=== PATIENT | male | born 1995 | race Two or more races ===

== ENCOUNTER 2019-08-22 02:56 | Emergency (ER) | payer SELFPAY ==
[~2019-08-22] VITALS: Ht 170.2 cm; Wt 70.5 kg
[2019-08-22 03:40] LABS: BASOPHILS % (AUTO) 0.6 % (0.0-2.0); EOSINOPHILS % (AUTO) 0.3 % (1.0-6.0); HEMATOCRIT 44.9 % (41-53); HEMOGLOBIN 15.2 g/dL (13.5-17.5); LYMPHOCYTES # (AUTO) 2.7 K/uL (1.0-4.8); LYMPHOCYTES % (AUTO) 25.4 % (22.0-44.0); MEAN CORPUSCULAR HEMOGLOBIN 30.8 pg (26.0-34.0); MEAN CORPUSCULAR HGB CONC 33.8 G/dL (31.0-37.0); MEAN CORPUSCULAR VOLUME 91 fL (80-100); MONOCYTES # (AUTO) 0.8 K/uL (0.1-1.0); MONOCYTES % (AUTO) 7.7 % (2.0-9.0); PLATELET COUNT (AUTO) 277 K/uL (150-450); RED BLOOD CELL COUNT(AUTO) 4.93 MIL/uL (4.50-5.90); RED CELL DISTRIBUTION WIDTH 13.4 % (11.5-14.5)
[2019-08-22 03:54] LABS: AMPHET/METH SCREEN,URINE NEGATIVE (NEGATIVE); BARBITURATE SCREEN, URINE NEGATIVE (NEGATIVE); BENZODIAZEPINES SCREEN,URINE NEGATIVE (NEGATIVE); CANNABINOID SCREEN,URINE NEGATIVE (NEGATIVE); COCAINE SCREEN,URINE NEGATIVE (NEGATIVE); METHADONE SCREEN, URINE NEGATIVE (NEGATIVE); OPIATE SCREEN,URINE NEGATIVE (NEGATIVE); PHENCYCLIDINE SCREEN,URINE NEGATIVE (NEGATIVE)
[2019-08-22 03:54] LABS: ANION GAP 7 mmol/L (8-16); CALCIUM, TOTAL 8.7 mg/dL (8.8-10.5); CARBON DIOXIDE 29 mmol/L (22-29); CHLORIDE 105 mmol/L (98-107); CREATININE 0.92 mg/dL (0.60-1.30); GLOMERULAR FILTR. RATE CALC > 60 mL/min (>60); GLUCOSE,RANDOM 97 mg/dL (70-110); POTASSIUM 3.9 mmol/L (3.5-5.1); SODIUM SERUM 141 mmol/L (136-145); UREA NITROGEN, BLOOD 8 mg/dL (7-18)
[2019-08-22 04:08] LABS: ALANINE AMINOTRANSFERASE 36 U/L (12-78); ALKALINE PHOSPHATASE 66 U/L (46-116); ASPARTATE AMINOTRANSFERASE 17 U/L (15-37); BILIRUBIN,TOTAL 0.2 mg/dL (0.1-1.0); TOTAL PROTEIN, SERUM 7.7 g/dL (6.4-8.2)
[2019-08-22 05:57] VITALS: BP 143/85
== END 2019-08-22 06:07 | disposition home or self-care (01) ==
LOC: EMS 02:56
DX: F43.0 Acute stress reaction (principal); F10.129 Alcohol abuse with intoxication, unspecified; Y90.6 Blood alcohol level of 120-199 mg/100 ml
CPT/HCPCS: 36415; 80053; 80307; 85025; 99285; G0480

== ENCOUNTER 2021-10-25 18:42 | Inpatient (IN) | payer OTHER ==
[~2021-10-25] VITALS: Ht 170.2 cm; Wt 60.7 kg
[2021-10-25] MEDS ORDERED: LORazepam 2 MG/ML VIAL IM ONE (19:30)
[2021-10-25] MEDS ORDERED: HALOPERIDOL LACTATE 5 MG/ML VIAL IM ONE (19:30)
[2021-10-25] MEDS ORDERED: DiphenhydrAMINE HCL 50 MG/ML VIAL IM ONE (19:30)
[2021-10-25 19:59] LABS: BASOPHILS % (AUTO) 0.4 % (0.0-2.0); EOSINOPHILS % (AUTO) 0.2 % (1.0-6.0); HEMOGLOBIN 17.5 g/dL (13.5-17.5); LYMPHOCYTES # (AUTO) 2.9 K/uL (1.0-4.8); LYMPHOCYTES % (AUTO) 20.6 % (22.0-44.0); MEAN CORPUSCULAR HEMOGLOBIN 31.3 pg (26.0-34.0); MEAN CORPUSCULAR HGB CONC 34.9 G/dL (31.0-37.0); MEAN CORPUSCULAR VOLUME 90 fL (80-100); MONOCYTES # (AUTO) 1.1 K/uL (0.1-1.0); MONOCYTES % (AUTO) 7.5 % (2.0-9.0); NEUTROPHILS # (AUTO) 10.1 K/uL (1.8-7.7); NEUTROPHILS % (AUTO) 71.3 % (40.0-70.0); PLATELET COUNT (AUTO) 360 K/uL (150-450); RED BLOOD CELL COUNT(AUTO) 5.59 MIL/uL (4.50-5.90); RED CELL DISTRIBUTION WIDTH 13.2 % (11.5-14.5)
[2021-10-25 20:07] LABS: ANION GAP 9 mmol/L (8-16); CALCIUM, TOTAL 9.7 mg/dL (8.8-10.5); CARBON DIOXIDE 31 mmol/L (22-29); CHLORIDE 101 mmol/L (98-107); CREATININE 1.09 mg/dL (0.60-1.30); GLOMERULAR FILTR. RATE CALC > 60 mL/min (>60); GLUCOSE,RANDOM 109 mg/dL (70-110); POTASSIUM 4.1 mmol/L (3.5-5.1); SODIUM SERUM 141 mmol/L (136-145); UREA NITROGEN, BLOOD 7 mg/dL (7-18)
[2021-10-25 20:15] LABS: ALANINE AMINOTRANSFERASE 23 U/L (12-78); ALBUMIN 4.7 g/dL (3.4-5.0); ALKALINE PHOSPHATASE 80 U/L (46-116); ASPARTATE AMINOTRANSFERASE 12 U/L (15-37); BILIRUBIN,TOTAL 0.5 mg/dL (0.1-1.0); TOTAL PROTEIN, SERUM 8.5 g/dL (6.4-8.2)
[2021-10-25 20:36] LABS: COVID AG,FIA SOURCE NASAL SWAB
[2021-10-26] MEDS ORDERED: LORazepam 1 MG TABLET PO ONE (12:00)
[2021-10-26 12:09] LABS: AMPHET/METH SCREEN,URINE NEGATIVE (NEGATIVE); BARBITURATE SCREEN, URINE NEGATIVE (NEGATIVE); BENZODIAZEPINES SCREEN,URINE NEGATIVE (NEGATIVE); CANNABINOID SCREEN,URINE POSITIVE (NEGATIVE); COCAINE SCREEN,URINE NEGATIVE (NEGATIVE); METHADONE SCREEN, URINE NEGATIVE (NEGATIVE); OPIATE SCREEN,URINE NEGATIVE (NEGATIVE); PHENCYCLIDINE SCREEN,URINE NEGATIVE (NEGATIVE)
[2021-10-26] MEDS ORDERED: LORazepam 2 MG TABLET PO PRN (12:30)
[2021-10-26] MEDS ORDERED: ZOLPIDEM TARTRATE 10 MG TABLET PO PRN (12:30)
[2021-10-26] MEDS ORDERED: HALOPERIDOL 5 MG TABLET PO PRN (12:30)
[2021-10-26 17:07] VITALS: BP 140/92
[2021-10-27 08:00] VITALS: BP 148/95
[2021-10-27] MEDS ORDERED: DOCUSATE SODIUM 100 MG CAPSULE PO PRN (10:30)
[2021-10-27] MEDS ORDERED: NICOTINE 14 MG/24 HOUR PATCH TD PRN (10:30)
[2021-10-27] MEDS ORDERED: MAG HYDROX/AL HYDROX/SIMETH ES 30 ML SUSPENSION UDCUP PO PRN (10:30)
[2021-10-27] MEDS ORDERED: ONDANSETRON HCL 4 MG TABLET PO PRN (10:30)
[2021-10-27] MEDS ORDERED: ALBUTEROL SULFATE HFA 90 MCG/PUFF 8 GM INHALER IH PRN (10:30)
[2021-10-27] MEDS ORDERED: CloNIDine HCL 0.1 MG TABLET PO PRN (10:30)
[2021-10-27] MEDS ORDERED: GuaiFENesin/D-METHORPHAN [SUGAR-FREE] 200-20MG/10 ML SYRUP UDCUP PO PRN (10:30)
[2021-10-27] MEDS ORDERED: ACETAMINOPHEN 325 MG TABLET PO PRN (10:30)
[2021-10-27] MEDS ORDERED: IBUPROFEN 400 MG TABLET PO PRN (10:30)
[2021-10-27] MEDS ORDERED: LOPERAMIDE HCL 2 MG CAPSULE PO PRN (10:30)
[2021-10-27] MEDS ORDERED: PETROLATUM,WHITE 28 GM JELLY TP PRN (10:30)
[2021-10-27] MEDS ORDERED: MAGNESIUM HYDROXIDE SUSPENSION 30 ML UDCUP PO PRN (10:30)
[2021-10-27] MEDS: SERTRALINE HCL 50 MG TABLET PO SCH (14:59)
[2021-10-27 16:37] VITALS: BP 133/81
[2021-10-28] MEDS: SERTRALINE HCL 50 MG TABLET PO SCH (09:25)
[2021-10-28] MEDS ORDERED: SERT-439 PO (10:04)
== END 2021-10-28 10:56 | disposition home or self-care (01) | DRG 885 ==
LOC: EMS 18:58 → 3EI 10-26 13:11
PROVIDERS: ADMIT Psychiatry & Neurology Child & Adolescent Psychiatry; ATTEND Psychiatry & Neurology Child & Adolescent Psychiatry
DX: F33.2 Major depressive disorder, recurrent severe without psychotic features (principal); R45.851 Suicidal ideations; F12.90 Cannabis use, unspecified, uncomplicated; F43.10 Post-traumatic stress disorder, unspecified; G47.00 Insomnia, unspecified; Z20.822 Contact with and (suspected) exposure to COVID-19; D72.829 Elevated white blood cell count, unspecified; Z72.89 Other problems related to lifestyle
CPT/HCPCS: 80053; 85025; 99285; G0480; J2060